=== PATIENT | male | born 2000 | race African-American/Black ===

== ENCOUNTER 2021-11-08 10:22 | Emergency (ER) | payer OTHER ==
[~2021-11-08] VITALS: Ht 180.3 cm; Wt 73.8 kg
[2021-11-08 12:54] VITALS: BP 153/93
== END 2021-11-08 13:03 | disposition home or self-care (01) ==
LOC: M ED 10:22
DX: S67.194A Crushing injury of right ring finger, initial encounter (principal); W23.1XXA Caught, crushed, jammed, or pinched between stationary objects, initial encounter; Y92.9 Unspecified place or not applicable; Y93.9 Activity, unspecified; Y99.9 Unspecified external cause status